=== PATIENT | male | born 1960 ===

== ENCOUNTER → 2016-09-30 | Outpatient (CLI) | payer SELFPAY ==
--- NOTE | 2016-09-30 16:59 | CR ---
EXAMINATION: Left shoulder HISTORY: Pain COMPARISON: None TECHNIQUE: 3 views FINDINGS/IMPRESSION: Moderate acromioclavicular osteoarthritic changes are noted. No fracture or acu te osseous abnormalities demonstrated. The glenohumeral joint space appears preserved. Bone minerali zation is normal.
== END | disposition home or self-care (01) ==
LOC: MW.CHORTHO 09:47
PROVIDERS: ATTEND Orthopaedic Surgery
DX: M25.512 Pain in left shoulder (principal); M19.012 Primary osteoarthritis, left shoulder; M25.511 Pain in right shoulder
CPT/HCPCS: 73030-26-LT; 73030-LT